=== PATIENT | female | born 1940 | race Caucasian/White ===

== ENCOUNTER 2017-09-18 07:14 | Emergency (ER) | payer MEDICARE ==
[~2017-09-18] VITALS: Ht 165.1 cm; Wt 71.0 kg
[~2017-09-18 07:14] MED LIST: ASPI81 PO; ATOR10 PO; AUGM875T PO; BENA25TA8 PO; BRIM0.2S EACH EYE; CALTCHW4 PO; DILTCD120 PO; FISH1000 PO; FURO20 PO; KCL10C PO; LATA.005%O OD; OMEP20CA5 PO; RAMI5CAP36 PO; TOVI4TAB PO; TRUS2SOL EACH EYE
[2017-09-18 07:22] VITALS: BP 170/74; PULSE 69; RESP 16; TEMP 97.6; O2SAT 96
[2017-09-18] MEDS ORDERED: HYDR-3516 PO (07:52)
[2017-09-18] MEDS ORDERED: ATOR10TA15 PO (07:52)
[2017-09-18] MEDS ORDERED: LATA0.002 RIGHT EYE (07:52)
[2017-09-18] MEDS ORDERED: LISI2.5T3 PO (07:52)
[2017-09-18] MEDS ORDERED: DORZ2SOL RIGHT EYE (07:52)
[2017-09-18] MEDS ORDERED: CALC1TAB87 PO (07:52)
[2017-09-18] MEDS ORDERED: CRANCAP2 PO (07:52)
[2017-09-18] MEDS ORDERED: ASPI81CH6 CHEW (07:52)
[2017-09-18] MEDS ORDERED: CART300C PO (07:52)
[2017-09-18] MEDS ORDERED: BRIM0.2S4 RIGHT EYE (07:52)
[2017-09-18] MEDS ORDERED: OMEGCAP PO (07:52)
[2017-09-18] MEDS ORDERED: OMEP20TA93 PO (07:52)
[2017-09-18] MEDS ORDERED: DIPH25CA PO (07:52)
[2017-09-18] MEDS ORDERED: NITR100C4 PO (07:52)
--- NOTE | 2017-09-18 08:06 | PD ---
HPI Chief Complaint: Fall Time Seen by Provider: 07:52 Travel History International Travel<30 days: No Contact w/Intl Traveler<30days: No Traveled to known affect area: No History of Present Illness HPI 77-year-old female complains of abrasion to the face, laceration the left upper arm, left shoulder pain and low back pain. Patient states that she got up this morning had dizziness and fell on the left side. Patient denies loss of consciousness. Patient denies any headache. Patient complains of mild pain in the left side of face. Patient states that she has an abrasion to left side of face. Patient states that she has a skin tear on the left upper arm. Patient complaining of sharp pain localized to left shoulder. Patient denies any pain radiation. Patient complains of moderate pain to the low back area. Patient denies any extremity injury. Patient denies any focal weakness or numbness of extremity. Patient has history back pain and back surgery in the past. Patient 's not sure of TD booster status. PFSH Past Medical History Hx Anticoagulant Therapy: Yes (BABY ASA DAILY) Asthma: No Heart Rhythm Problems: No Cancer: Yes (SKIN CA RIGHT EAR) Cardiovascular Problems: Yes (HTN, CHOL) High Cholesterol: Yes Congestive Heart Failure: No COPD: Yes Diabetes: No Diminished Hearing: No Diverticulitis: Yes GERD: Yes Glaucoma: Yes Hepatitis: No Hiatal Hernia: No Hypertension: Yes Immune Disorder: No Kidney Stones: No Medical other: Yes (GASTRIC ULCER HISTORY) Musculoskeletal: Yes Neurologic: No Psychiatric: No Immunizations Current: No Renal Failure: No Sleep Apnea: No Thyroid Disease: No Ulcer: Yes Influenza Vaccination: Yes ?: Not Dilation and Curettage (D&C): Yes (states several) Tubal Ligation: Yes (and tubal repair) Past Surgical History Abdominal Surgery: No (appendix out when hysterectomy) Appendectomy: Yes Cardiac Surgery: No Ear Surgery: No Eye Surgery: Yes (BILAT CATARACT EXT, shunt in left eye r/t glaucoma) Gynecologic Surgery: Yes (TUBAL AND REPAIR-HYSTERECTOMY) Hysterectomy: Yes Oral Surgery: Yes (T&A, sinues surgery) Pacemaker: No Thoracic Surgery: No Tonsillectomy: Yes ( & adnoids) Other Surgery: Yes (RECTAL POLYPS) Social History Alcohol Use: Yes (DENIES) Tobacco Use: No (quit 1975 smoked 2 ppd) Substance Use: No Allergies-Medications (Allergen,Severity, Reaction): Coded Allergies: codeine (Unverified Allergy, Severe, H/A, 09/18/17) oxaprozin (Unverified Allergy, Severe, HIVES, 09/18/17) Reported Meds & Prescriptions Reported Meds & Active Scripts Active Reported Nitrofurantoin Monohydrate Macrocrystals (Nitrofurantoin Monoh/Nitrofur Macro) 100 Mg Cap 100 Mg PO Sat Lisinopril 2.5 Mg Tab 2.5 Mg PO DAILY Cartia Xt (Diltiazem ER 24 HR) 300 Mg Caper 300 Mg PO DAILY Diphenhydramine (Diphenhydramine HCl) 25 Mg Cap 25 Mg PO HS PRN Cranberry Urinary Comfort (Vitamins C & E) 1 Cap 1 Cap PO BID [place]-3 Fish Oil/Vitamin (Fish Oil-Cholecalciferol) 1,000-1,000 Mg Cap 1 Cap PO BID Calcium 600 with Vitamin D (Calcium Carbonate-Cholecalciferol) 600-400 mg-Unit Tab 2 Tab PO DAILY Aspirin Low Dose (Aspirin) 81 Mg Chew 81 Mg CHEW DAILY Hydrocodone-Acetamin 5-325 mg (Hydrocodone/Acetaminophen) 5 Mg-325 Mg Tablet 1 Tab PO TID Omeprazole 20 Mg Tab 20 Mg PO DAILY Atorvastatin (Atorvastatin Calcium) 10 Mg Tab 10 Mg PO HS Brimonidine Opth Drops (Brimonidine Tartrate) 0.2% Soln 1 Drop RIGHT EYE BID Dorzolamide Opth Drops (Dorzolamide HCl) 2% Soln 1 Drop RIGHT EYE BID Latanoprost Opth Drops (Latanoprost) 0.005% Drops 1 Drop RIGHT EYE HS Refrigerate until opened. Review of Systems General / Constitutional: No: Fever Eyes: No: Visual changes HENT: No: Headaches Cardiovascular: No: Chest Pain or Discomfort Respiratory: No: Shortness of Breath Gastrointestinal: No: Abdominal Pain Genitourinary: No: Dysuria Musculoskeletal: Positive: Pain Skin: No Rash Neurologic: No: Weakness Psychiatric: No: Depression Endocrine: No: Polydipsia Hematologic/Lymphatic: No: Easy Bruising Physical Exam Narrative GENERAL: Well-nourished, well-developed patient. SKIN: Focused skin assessment warm/dry. Patient has 6 cm skin Avulsion laceration to left upper arm. HEAD: Normocephalic. Patient has small area abrasion to left cheek area. EYES: No scleral icterus. No injection or drainage. NECK: Supple, trachea midline. No JVD or lymphadenopathy. CARDIOVASCULAR: Regular rate and rhythm without murmurs, gallops, or rubs. RESPIRATORY: Breath sounds equal bilaterally. No accessory muscle use. GASTROINTESTINAL: Abdomen soft, non-tender, nondistended. MUSCULOSKELETAL: No cyanosis, or edema. Patient has moderate tenderness on palpation left shoulder and distal left clavicle area. Full range of motion of the left shoulder. BACK: Mild tenderness on palpation lumbar area, without obvious deformity. No CVA tenderness. Neurologic exam normal. Data Data Last Documented VS Vital Signs Date Time Temp Pulse Resp B/P (MAP) Pulse Ox O2 Delivery O2 Flow Rate FiO2 09/18/17 07:22 97.6 69 16 170/74 (106) 96 Orders Orders Shoulder, Limited(2vws) (09/18/17 07:59) Spine, Lumbar - Ltd (Ap & Lat) (09/18/17 07:59) Zygomatic Arches (<3vws) (09/18/17 ) Tetanus/Diphtheria Tox Adult (Tetanus/Di (09/18/17 08:15) MDM Medical Decision Making Medical Screen Exam Complete: Yes Emergency Medical Condition: Yes Interpretation(s) Last Impressions Shoulder X-Ray 09/18/17 0759 Signed Impressions: Service Date/Time: Monday, September 18, 2017 08:06 - CONCLUSION: 1. Old fracture superolateral humeral head. 2. Fracture of the distal clavicle with minimal superior displacement of undetermined age. Carmine Springer MD Lumbar Spine X-Ray 09/18/17 0759 Signed Impressions: Service Date/Time: Monday, September 18, 2017 08:06 - CONCLUSION: 1. Multilevel degenerative changes. 2. Mild loss of T11 likely fracture of superior endplate. Carmine Springer MD Zygomatic Bone X-Ray 09/18/17 0000 Signed Impressions: Service Date/Time: Monday, September 18, 2017 08:06 - CONCLUSION: Soft tissue swelling in the left. Minimal lucency in the left zygomatic arch likely artifact but nondisplaced fracture cannot be excluded. Carmine Springer MD Differential Diagnosis Differential diagnosis including contusion, fracture, dislocation. Narrative Course 77-year-old female with facial abrasion, left arm skin tear, shoulder injury and low back injury. Status post fall. TD booster given. Sling given left arm Procedures Procedure Narrative Skin avulsion laceration left upper arm was repaired with Dermabond. Diagnosis Primary Impression: Fracture of left clavicle Qualified Codes: S42.035A - Nondisplaced fracture of lateral end of left clavicle, initial encounter for closed fracture Additional Impressions: Fracture of thoracic spine Qualified Codes: S22.080A - Wedge compression fracture of t11-T12 vertebra, initial encounter for closed fracture Fracture, zygoma closed Qualified Codes: S02.402A - Zygomatic fracture, unspecified side, initial encounter for closed fracture Laceration of left upper arm Qualified Codes: S41.112A - Laceration without foreign body of left upper arm , initial encounter Patient Instructions: General Instructions Additional Instructions: Take medication as needed for pain. Follow-up with orthopedist. Wound care daily. Patient has hydrocodone at home for pain. Med/Other Pt SpecificInfo: Prescription(s) given, No Change to Meds Disposition: 01 DISCHARGE HOME Condition: Stable Sixto Alvares MD Sep 18, 2017 08:06
[2017-09-18] MEDS ORDERED: TETANUS/DIPHTHERIA TOXOID ADULT 0.5 ML VIAL IM ONE (08:15)
--- NOTE | 2017-09-18 08:45 | RADRPT ---
EXAM DATE/TIME: 09/18/2017 08:06 [facility] COMPARISON: No previous studies available for comparison. INDICATIONS : Fall, left cheek bone pain. MEDICAL HISTORY : None. SURGICAL HISTORY : None. ENCOUNTER: Initial ACUITY: 1 day PAIN SCORE: 5/10 LOCATION: Left cheekbone FINDINGS: A single basal view is performed to evaluate the zygomatic arches. Soft tissue swelling on the left. Minimal lucency left zygomatic arch. Right arch is intact. CONCLUSION: Soft tissue swelling in the left. Minimal lucency in the left zygomatic arch likely artifact but nond isplaced fracture cannot be excluded. Carmine Springer MD on September 18, 2017 at 8:41 Board Certified Radiologist. This report was verified electronically.
--- NOTE | 2017-09-18 08:46 | RADRPT ---
EXAM DATE/TIME: 09/18/2017 08:06 [facility] COMPARISON: CHEST PA & LAT, February 11, 2015, 8:14. INDICATIONS : Fall, low back pain. MEDICAL HISTORY : None. SURGICAL HISTORY : None. ENCOUNTER: Initial ACUITY: 1 day PAIN SCORE: 5/10 LOCATION: low back FINDINGS: Two view examination was performed. There are five non-rib bearing vertebral bodies. Advanced multil evel degenerative changes. Mild loss of height of T11. The pedicles are intact. Diffuse osteopenia. No fracture is identified. CONCLUSION: 1. Multilevel degenerative changes. 2. Mild loss of T11 likely fracture of superior endplate. Carmine Springer MD on September 18, 2017 at 8:42 Board Certified Radiologist. This report was verified electronically.
--- NOTE | 2017-09-18 08:48 | RADRPT ---
EXAM DATE/TIME: 09/18/2017 08:06 [facility] COMPARISON: No previous studies available for comparison. INDICATIONS : Fall, left shoulder pain. MEDICAL HISTORY : None. SURGICAL HISTORY : None. ENCOUNTER: Initial ACUITY: 1 day PAIN SCORE: 5/10 LOCATION: Left shoulder FINDINGS: Two view examination of the left shoulder demonstrates minimally displaced fracture distal clavicle w ith superior migration. Degenerative changes left shoulder. Cortical defect superolateral humeral hea d likely old fracture. CONCLUSION: 1. Old fracture superolateral humeral head. 2. Fracture of the distal clavicle with minimal superior displacement of undetermined age. Carmine Springer MD on September 18, 2017 at 8:44 Board Certified Radiologist. This report was verified electronically.
== END 2017-09-18 09:41 | disposition home or self-care (01) ==
LOC: PHED 07:14
DX: S42.035A Nondisplaced fracture of lateral end of left clavicle, initial encounter for closed fracture (principal); S22.080A Wedge compression fracture of T11-T12 vertebra, initial encounter for closed fracture; S02.402A Zygomatic fracture, unspecified side, initial encounter for closed fracture; S41.112A Laceration without foreign body of left upper arm, initial encounter; Z23 Encounter for immunization; J44.9 Chronic obstructive pulmonary disease, unspecified; H40.9 Unspecified glaucoma; I10 Essential (primary) hypertension; E78.00 Pure hypercholesterolemia, unspecified; Z79.82 Long term (current) use of aspirin; W18.30XA Fall on same level, unspecified, initial encounter; Y93.9 Activity, unspecified; Y92.9 Unspecified place or not applicable; Y99.9 Unspecified external cause status; Z85.828 Personal history of other malignant neoplasm of skin; Z87.891 Personal history of nicotine dependence
CPT/HCPCS: 12002; 70140; 72100; 73030; 90471; 90714

== ENCOUNTER 2017-11-25 16:24 | Emergency (ER) | payer OTHER, MEDICARE ==
[~2017-11-25 16:24] MED LIST changes: -ASPI81 PO; +ASPI81CH6 CHEW; -ATOR10 PO; +ATOR10TA15 PO; -AUGM875T PO; -BENA25TA8 PO; -BRIM0.2S EACH EYE; +BRIM0.2S4 RIGHT EYE; +CALC1TAB87 PO; -CALTCHW4 PO; +CART300C PO; +CRANCAP2 PO; -DILTCD120 PO; +DIPH25CA PO; +DORZ2SOL RIGHT EYE; -FISH1000 PO; -FURO20 PO; +HYDR-3516 PO; -KCL10C PO; -LATA.005%O OD; +LATA0.002 RIGHT EYE; +LISI2.5T3 PO; +NITR100C4 PO; +OMEGCAP PO; -OMEP20CA5 PO; +OMEP20TA93 PO; -RAMI5CAP36 PO; -TOVI4TAB PO; -TRUS2SOL EACH EYE
[2017-11-25 16:35] VITALS: BP 182/74; PULSE 72; RESP 16; TEMP 99.2; O2SAT 96
[2017-11-25 17:33] VITALS: O2SAT 96
--- NOTE | 2017-11-25 17:36 | PD ---
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 She states that the dizziness has since subsided. She denies any nausea, vomiting, fevers, chest pains, shortness of breath, diarrhea, or any other symptoms. She has not had previous episodes of this in the past. She states she did not have any loss of consciousness. Modifying Factors: None Associated Signs & Symptoms: Episode of dizziness, near syncope Risk Factors: Elderly PFSH Past Medical History Hx Anticoagulant Therapy: Yes (BABY ASA DAILY) Asthma: No Heart Rhythm Problems: No Cancer: Yes (SKIN CA RIGHT EAR) Cardiovascular Problems: Yes (HTN, CHOL) High Cholesterol: Yes Congestive Heart Failure: No COPD: Yes Diabetes: No Diminished Hearing: No Diverticulitis: Yes GERD: Yes Glaucoma: Yes Hepatitis: No Hiatal Hernia: No Hypertension: Yes Immune Disorder: No Kidney Stones: No Musculoskeletal: Yes Neurologic: No Psychiatric: No Immunizations Current: No Renal Failure: No Sleep Apnea: No Thyroid Disease: No Ulcer: Yes ?: Not Dilation and Curettage (D&C): Yes (states several) Tubal Ligation: Yes (and tubal repair) Past Surgical History Abdominal Surgery: No (appendix out when hysterectomy) Appendectomy: Yes Cardiac Surgery: No Ear Surgery: No Eye Surgery: Yes (BILAT CATARACT EXT, shunt in left eye r/t glaucoma) Gynecologic Surgery: Yes (TUBAL AND REPAIR-HYSTERECTOMY) Hysterectomy: Yes Oral Surgery: Yes (T&A, sinues surgery) Pacemaker: No Thoracic Surgery: No Tonsillectomy: Yes ( & adnoids) Other Surgery: Yes (RECTAL POLYPS) Social History Alcohol Use: Yes (DENIES) Tobacco Use: No (quit 1975 smoked 2 ppd) Substance Use: No Allergies-Medications (Allergen,Severity, Reaction): Coded Allergies: codeine (Unverified Allergy, Severe, H/A, 11/25/17) oxaprozin (Unverified Allergy, Severe, HIVES, 11/25/17) Reported Meds & Prescriptions Reported Meds & Active Scripts Active Reported Nitrofurantoin Monohydrate Macrocrystals (Nitrofurantoin Monoh/Nitrofur Macro) 100 Mg Cap 100 Mg PO Sat Lisinopril 2.5 Mg Tab 2.5 Mg PO DAILY Cartia Xt (Diltiazem ER 24 HR) 300 Mg Caper 300 Mg PO DAILY Diphenhydramine (Diphenhydramine HCl) 25 Mg Cap 25 Mg PO HS PRN Cranberry Urinary Comfort (Vitamins C & E) 1 Cap 1 Cap PO BID [place]-3 Fish Oil/Vitamin (Fish Oil-Cholecalciferol) 1,000-1,000 Mg Cap 1 Cap PO BID Calcium 600 with Vitamin D (Calcium Carbonate-Cholecalciferol) 600-400 mg-Unit Tab 2 Tab PO DAILY Aspirin Low Dose (Aspirin) 81 Mg Chew 81 Mg CHEW DAILY Hydrocodone-Acetamin 5-325 mg (Hydrocodone/Acetaminophen) 5 Mg-325 Mg Tablet 1 Tab PO TID Omeprazole 20 Mg Tab 20 Mg PO DAILY Atorvastatin (Atorvastatin Calcium) 10 Mg Tab 10 Mg PO HS Brimonidine Opth Drops (Brimonidine Tartrate) 0.2% Soln 1 Drop RIGHT EYE BID Dorzolamide Opth Drops (Dorzolamide HCl) 2% Soln 1 Drop RIGHT EYE BID Latanoprost Opth Drops (Latanoprost) 0.005% Drops 1 Drop RIGHT EYE HS Refrigerate until opened. Review of Systems Except as stated in HPI: all other systems reviewed are Neg Physical Exam Narrative GENERAL: Pleasant elderly female patient currently in mild distress. Awake and oriented 3. SKIN: Focused skin assessment warm/dry. There is a large 10 cm skin tear to the right lower leg with no signs of vascular injury or tendon injuries. There are smaller skin tears to both arms. EXTREMITIES: No clubbing, cyanosis, or edema. No joint tenderness, effusion, or edema noted. HEAD: Atraumatic. Normocephalic. EYES: Pupils equal and round. No scleral icterus. No injection or drainage. ENT: No nasal bleeding or discharge. Mucous membranes pink and moist. NECK: Trachea midline. No JVD. Supple. CARDIOVASCULAR: Regular rate and rhythm. No murmur appreciated. RESPIRATORY: No accessory muscle use. Clear to auscultation. Breath sounds equal bilaterally. GASTROINTESTINAL: Abdomen soft, non-tender, nondistended. Hepatic and splenic margins not palpable. MUSCULOSKELETAL: No obvious deformities. No clubbing. No cyanosis. No edema. NEUROLOGICAL: Awake and alert. No obvious cranial nerve deficits. Motor grossly within normal limits. Normal speech. PSYCHIATRIC: Appropriate mood and affect; insight and judgment normal. Data Data Last Documented VS Vital Signs Date Time Temp Pulse Resp B/P (MAP) Pulse Ox O2 Delivery O2 Flow Rate FiO2 11/25/17 18:30 71 18 165/66 (99) 98 Room Air 11/25/17 16:35 99.2 Orders Orders Urinalysis - C+S If Indicated (11/25/17 16:55) Electrocardiogram (11/25/17 17:31) Complete Blood Count With Diff (11/25/17 17:31) Comprehensive Metabolic Panel (11/25/17 17:31) Ckmb (Isoenzyme) Profile (11/25/17 17:31) Troponin I (11/25/17 17:31) Chest, Single Ap (11/25/17 17:31) Ecg Monitoring (11/25/17 17:31) Iv Access Insert/Monitor (11/25/17 17:31) Oximetry (11/25/17 17:31) Sodium Chloride 0.9% Flush (Ns Flush) (11/25/17 17:45) Knee, Complete (4vws) (11/25/17 17:36) Labs Laboratory Tests Test 11/25/17 17:35 11/25/17 18:37 White Blood Count 7.0 TH/MM3 Red Blood Count 3.97 MIL/MM3 Hemoglobin 12.8 GM/DL Hematocrit 37.6 % Mean Corpuscular Volume 94.8 FL Mean Corpuscular Hemoglobin 32.1 PG Mean Corpuscular Hemoglobin Concent 33.9 % Red Cell Distribution Width 13.3 % Platelet Count 292 TH/MM3 Mean Platelet Volume 9.0 FL Neutrophils (%) (Auto) 78.2 % Lymphocytes (%) (Auto) 11.3 % Monocytes (%) (Auto) 8.6 % Eosinophils (%) (Auto) 1.4 % Basophils (%) (Auto) 0.5 % Neutrophils # (Auto) 5.5 TH/MM3 Lymphocytes # (Auto) 0.8 TH/MM3 Monocytes # (Auto) 0.6 TH/MM3 Eosinophils # (Auto) 0.1 TH/MM3 Basophils # (Auto) 0.0 TH/MM3 CBC Comment DIFF FINAL Differential Comment Blood Urea Nitrogen 14 MG/DL Creatinine 0.82 MG/DL Random Glucose 109 MG/DL Total Protein 7.2 GM/DL Albumin 3.8 GM/DL Calcium Level 8.9 MG/DL Alkaline Phosphatase 95 U/L Aspartate Amino Transf (AST/SGOT) 24 U/L Alanine Aminotransferase (ALT/SGPT) 22 U/L Total Bilirubin 0.3 MG/DL Sodium Level 139 MEQ/L Potassium Level 3.7 MEQ/L Chloride Level 107 MEQ/L Carbon Dioxide Level 25.6 MEQ/L Anion Gap 6 MEQ/L Estimat Glomerular Filtration Rate 67 ML/MIN Total Creatine Kinase 46 U/L Troponin I LESS THAN 0.02 NG/ML Urine Color GUERRERO Urine Turbidity CLEAR Urine pH 6.0 Urine Specific [place] 1.020 Urine Protein NEG mg/dL Urine Glucose (UA) NEG mg/dL Urine Ketones TRACE mg/dL Urine Occult Blood NEG Urine Nitrite NEG Urine Bilirubin NEG Urine Urobilinogen 0.2 MG/DL Urine Leukocyte Esterase NEG Urine RBC 0-3 /hpf Urine WBC 3-5 /hpf Urine Squamous Epithelial Cells 0-5 /hpf Urine Mucus MANY /lpf Microscopic Urinalysis Comment CULT NOT INDICATED MDM Medical Decision Making Medical Screen Exam Complete: Yes Emergency Medical Condition: Yes Medical Record Reviewed: Yes Interpretation(s) EKG shows NSR, no ST elevation or depression, and no arrhythmias. No significant T-wave inversions. Laboratory Tests Test 11/25/17 17:35 11/25/17 18:37 Red Blood Count 3.97 MIL/MM3 (4.00-5.30) Neutrophils (%) (Auto) 78.2 % (16.0-70.0) Monocytes (%) (Auto) 8.6 % (0.0-8.0) Lymphocytes # (Auto) 0.8 TH/MM3 (1.0-4.8) Random Glucose 109 MG/DL (74-106) Estimat Glomerular Filtration Rate 67 ML/MIN (>89) Troponin I LESS THAN 0.02 NG/ML Urine Color GUERRERO (YELLW/STRAW) Urine Ketones TRACE mg/dL (NEG) Urine Mucus MANY /lpf (OCC) Last 24 hours Impressions Knee X-Ray 11/25/17 6181 Signed Impressions: Service Date/Time: Saturday, November 25, 2017 18:08 - CONCLUSION: No evidence of acute bony injury. Angel Negron MD Chest X-Ray 11/25/17 1731 Signed Impressions: Service Date/Time: Saturday, November 25, 2017 18:05 - CONCLUSION: Bibasilar linear atelectasis or scarring. No focal infiltrates seen. Angel Negron MD Differential Diagnosis Near syncope, dizziness, skin tears: Rule out dysrhythmias versus dehydration versus metabolic issues Narrative Course EKG did not show any significant dysrhythmias. Lab work was fairly unremarkable. Her skin tear was irrigated and Tegaderm was placed. Patient tolerated well. I have discussed observation admission versus close outpatient follow-up with primary care doctor with the patient and she states that she does not want to stay in the hospital. She has been up and walking to the bathroom without issues. She has no focal neurological deficits. Her symptoms have subsided. She should return for any worsening in symptoms. At this point , the plan was discussed with her and she states understanding. Diagnosis Primary Impression: Near syncope Disposition: 01 DISCHARGE HOME Condition: Stable Kris Merritt MD Nov 25, 2017 17:36
[2017-11-25 17:41] LABS: AUTOMATED NEUTROPHIL # 5.5 TH/MM3 (1.8-7.7); BASOPHIL % 0.5 % (0.0-2.0); EOSINOPHIL # 0.1 TH/MM3 (0-0.4); EOSINOPHIL % 1.4 % (0.0-4.0); HEMATOCRIT 37.6 % (35.0-46.0); HEMOGLOBIN 12.8 GM/DL (11.6-15.3); LYMPH % 11.3 % (9.0-44.0); LYMPHOCYTE # 0.8 TH/MM3 (1.0-4.8); MEAN CELL VOLUME 94.8 FL (80.0-100.0); MEAN CORPUSCULAR HEMOGLOBIN 32.1 PG (27.0-34.0); MEAN CORPUSCULAR HGB CONC 33.9 % (32.0-36.0); MONO % 8.6 % (0.0-8.0); MONOCYTE # 0.6 TH/MM3 (0-0.9); NEUT % 78.2 % (16.0-70.0); PLATELET COUNT 292 TH/MM3 (150-450); RED BLOOD COUNT 3.97 MIL/MM3 (4.00-5.30); RED CELL DISTRIBUTION WIDTH 13.3 % (11.6-17.2)
[2017-11-25] MEDS ORDERED: SODIUM CHLORIDE 0.9% FLUSH 10 ML FLUSH IVF PRN (17:45)
[2017-11-25 17:51] LABS: CHLORIDE 107 MEQ/L (98-107); SODIUM (NA) 139 MEQ/L (136-145)
[2017-11-25 17:54] LABS: CALCIUM 8.9 MG/DL (8.5-10.1)
[2017-11-25 17:55] LABS: ALBUMIN 3.8 GM/DL (3.4-5.0); BICARBONATE 25.6 MEQ/L (21.0-32.0); BLOOD UREA NITROGEN 14 MG/DL (7-18); GLUCOSE,RANDOM 109 MG/DL (74-106)
[2017-11-25 17:58] LABS: ALT (GPT) 22 U/L (10-53); AST (GOT) 24 U/L (15-37); CREATININE 0.82 MG/DL (0.50-1.00); GLOMERULAR FILTRATION RATE 67 ML/MIN (>89)
[2017-11-25 17:59] LABS: TOTAL BILIRUBIN ADULT 0.3 MG/DL (0.2-1.0); TOTAL PROTEIN 7.2 GM/DL (6.4-8.2)
[2017-11-25 18:01] LABS: ALKALINE PHOSPHATASE 95 U/L (45-117)
[2017-11-25 18:03] LABS: TROPONIN I LESS THAN 0.02 NG/ML (0.02-0.05)
--- NOTE | 2017-11-25 18:27 | RADRPT ---
EXAM DATE/TIME: 11/25/2017 18:05 [facility] COMPARISON: CHEST SINGLE AP, February 09, 2015, 8:57. INDICATIONS : Chest discomfort. Weakness. MEDICAL HISTORY : None. SURGICAL HISTORY : None. ENCOUNTER: Initial ACUITY: 1 day PAIN SCORE: 5/10 LOCATION: Bilateral chest FINDINGS: The lungs are symmetrically aerated. There are bilateral lower lung horizontal linear opacities sugg esting scarring or atelectasis. Both hemidiaphragms are well delineated. The heart is normal in siz e. No focal areas of consolidation. Healed fracture of the lateral left clavicular head. CONCLUSION: Bibasilar linear atelectasis or scarring. No focal infiltrates seen. Angel Negron MD on November 25, 2017 at 18:24 Board Certified Radiologist. This report was verified electronically.
--- NOTE | 2017-11-25 18:29 | RADRPT ---
EXAM DATE/TIME: 11/25/2017 18:08 [facility] COMPARISON: No previous studies available for comparison. INDICATIONS : Fall. Left knee pain. MEDICAL HISTORY : None. SURGICAL HISTORY : None. ENCOUNTER: Initial ACUITY: 1 day PAIN SCORE: 7/10 LOCATION: Left lateral FINDINGS: Diffuse osteopenia. The osseous structures are in normal alignment. Chondrocalcinosis of both the m edial and lateral meniscus. Suprapatellar soft tissues are normal in thickness. Moderate degenerati ve changes in the patellofemoral articulation. No fracture seen. CONCLUSION: No evidence of acute bony injury. Angel Negron MD on November 25, 2017 at 18:26 Board Certified Radiologist. This report was verified electronically.
[2017-11-25 18:30] VITALS: BP 165/66; PULSE 71; RESP 18; O2SAT 98
[2017-11-25 18:42] LABS: BILIRUBIN, URINE NEG (NEG); BLOOD, URINE NEG (NEG); GLUCOSE,URINE NEG (NEG); KETONE, URINE TRACE mg/dL (NEG); NITRITE,URINE NEG (NEG); URINE LEUKOCYTE ESTERASE NEG (NEG)
[2017-11-25 18:46] LABS: URINE COLOR AMBER (YELLW/STRAW)
[2017-11-25 18:47] LABS: MUCUS URINE MANY /lpf (OCC)
[2017-11-25 18:48] LABS: RBC, URINE 0-3 /hpf (0-3); SQUAMOUS EPITHELIAL CELL URINE 0-5 /hpf (0-5)
[2017-11-25 19:17] VITALS: BP 164/69; PULSE 72; RESP 16; O2SAT 98
[2017-11-25 19:46] VITALS: BP 170/67
--- NOTE | 2017-11-26 16:02 | EKG ---
Date Performed: 11/25/2017 Time Performed: 17:38:15 PTAGE: 77 years EKG: Sinus rhythm NORMAL ECG PREVIOUS TRACING : 02/07/2015 10.15 Sinus rhythm replaces atrial fibrillation. DOCTOR: Jose Mejia Interpretating Date/Time 11/26/2017 16:00:57
== END 2017-11-25 19:54 | disposition home or self-care (01) ==
LOC: PHED 16:24
DX: R55 Syncope and collapse (principal); S81.811A Laceration without foreign body, right lower leg, initial encounter; W19.XXXA Unspecified fall, initial encounter; Y99.0 Civilian activity done for income or pay; I10 Essential (primary) hypertension; I48.91 Unspecified atrial fibrillation; E78.00 Pure hypercholesterolemia, unspecified; J44.9 Chronic obstructive pulmonary disease, unspecified; Z87.891 Personal history of nicotine dependence
CPT/HCPCS: 71045; 73564; 80053; 81001; 82550; 84484; 85025; 93005; 99285

== ENCOUNTER 2018-02-06 07:27 | Day surgery (SDC) | payer MEDICARE ==
[2018-02-06] VITALS (10 sets, daily range): BP systolic 124–170; BP diastolic 53–69; PULSE 49–60; RESP 18–20; TEMP 97.7–97.8; O2SAT 93–98
[2018-02-06] MEDS ORDERED: SODIUM CHLOR 0.9% 1000 ML INJ 1,000 ML IV SCH (08:15)
[2018-02-06] MEDS ORDERED: MIDAZOLAM HCL 2 MG/2 ML VIAL ONE (09:48)
--- NOTE | 2018-02-06 12:55 | RADRPT ---
EXAM DATE: 02/06/2018 12:42 PM EDT AGE/SEX: 77 years / Female INDICATIONS: Post left lung biopsy. CLINICAL DATA: This is the patient's subsequent encounter. Patient reports that signs and symptoms h ave been present for 1 day and indicates a pain score of 0/10. MEDICAL/SURGICAL HISTORY: None. None. COMPARISON: No prior exams available for comparison. FINDINGS: A single frontal expiratory view of the chest was performed. The lungs are symmetrically aerated and clear. No evidence of pneumothorax. Mediastinal structures are in the midline. A single frontal ex piratory view of the chest was performed. Bibasilar atelectatic changes are noted. No evidence of pne umothorax. Mediastinal structures are in the midline. CONCLUSION: 1. No evidence of pneumothorax status post left lung biopsy. 2. Bibasilar atelectatic changes. Electronically signed by: Nishant Omalley MD 02/06/2018 12:53 PM EDT
--- NOTE | 2018-02-07 07:31 | RADRPT ---
EXAM DATE: 02/06/2018 10:38 AM EDT AGE/SEX: 77 years / Female INDICATIONS: Left lung mass. CLINICAL DATA: This is the patient's initial encounter. Patient reports that signs and symptoms have been present for 1 day and indicates a pain score of 0/10. MEDICAL/SURGICAL HISTORY: None. None. COMPARISON: No prior exams available for comparison. SEDATION TIME (min): 30min BIOPSY SITE: Left lung MEDICATION(S): 3mg midazolam (Versed) IV 150mcg fentanyl (Sublimaze) IV DEVICE(S): 20 gauge Temno core biopsy needle 11cm One core specimen(s) sent to the laboratory for pathologic evaluation. . . PROCEDURE: CT guided Left lung biopsy Prior to the procedure informed consent was obtained. Any appropriate prior imaging studies were rev iewed. Using automated exposure control and adjustment of the mA and/or kV according to patient size , radiation dose was kept as low as reasonably achievable to obtain optimal diagnostic quality images . DICOM format image data is available electronically for review and comparison. The site was prepped in a sterile fashion. Full sterile technique was used, including cap, mask, fernandez rile gloves and gown and a large sterile sheet. Hand hygiene and 2% chlorhexidine and/or betadine/al cohol prep was utilized per protocol for cutaneous antisepsis. The skin and subcutaneous tissues wer e infiltrated with local anesthetic solution. With CT guidance the previously identified target was localized. Biopsy was performed using the presc ribed needle as above. Adequate hemostasis was obtained with compression at the puncture site. Follow-up CT scan reveals no pneumothorax. Conscious sedation was performed with the prescribed dosages and duration as above in the presence of an independent trained radiology nurse to assist in the monitoring of the patient. EKG and oximetry remained stable throughout the procedure. The patient tolerated the procedure well and there were no complications. The patient was sent to Radiology Outpatient Unit in stable condition. FINDINGS: Successful CT-guided 20-gauge core biopsy of left posterior lung mass as described above. CONCLUSION: 1. Uncomplicated CT guided biopsy. Electronically signed by: Nishant Omalley MD 02/07/2018 7:29 AM EDT
== END 2018-02-06 14:30 | disposition home or self-care (01) ==
LOC: HRAD 07:27 → HRIP 07:29 → HRAD 14:30
PROVIDERS: ATTEND Internal Medicine Hematology & Oncology
DX: R91.8 Other nonspecific abnormal finding of lung field (principal)
CPT/HCPCS: 32405; 71045; 77012; 88305; 88341; 88342; 99152; 99153; J2250; J3010; J7030